=== PATIENT | male | born 1935 | race Caucasian/White ===

== ENCOUNTER → 2016-10-13 | Outpatient (CLI) | payer OTHER ==
[2016-10-13 15:45] LABS: BILIRUBIN,URINE NEGATIVE (NEG); CLARITY,URINE CLEAR (CLEAR); COLOR,URINE YELLOW; GLUCOSE, URINE (UA) NEGATIVE (NEG); NITRATE,URINE NEGATIVE (NEG); OCCULT BLOOD,URINE NEGATIVE (NEG); PH,URINE 5.5 (5.0-8.5); PROTEIN,URINE NEGATIVE (NEG); UROBILINOGEN,URINE 0.2 mg/dL (0.2)
[2016-10-13 15:47] LABS: RBC,URINE 0 /hpf; URINE SAMPLE TYPE CLEAN CATCH URINE; WBC,URINE 0
== END ==
LOC: LAB 15:21
PROVIDERS: ATTEND Orthopaedic Surgery
DX: M16.11 Unilateral primary osteoarthritis, right hip (principal)
CPT/HCPCS: 36415; 81001; 86850; 86900; 86901

== ENCOUNTER → 2016-10-13 | Outpatient (CLI) | payer OTHER ==
--- NOTE | 2016-10-14 01:00 | DI ---
XR HIP COMPLETE MIN 2VW U/L,10/13/2016 2:47 PM: Clinical History: Right hip arthritis. Previous Exam: None at this facility. Findings: AP and crosstable lateral views of the right hip are obtained, and demonstrate near complete loss of joint space with sclerosis and eburnation with osteophyte formation. A nonobstructive bowel gas pattern is noted. A few phleboliths are seen. 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
== END ==
LOC: ORTHO 15:07
PROVIDERS: ATTEND Orthopaedic Surgery
DX: M16.11 Unilateral primary osteoarthritis, right hip (principal)
CPT/HCPCS: 73502

== ENCOUNTER 2016-10-14 05:54 | Inpatient (IN) | payer OTHER ==
[~2016-10-14 05:54] MED LIST: LIDOCAINE W/ SODIUM BICARB 0.5 ML SYR ONE; Lactated Ringers 1,000 ML PRIMARY IV ONE; Sodium Chloride 0.9% 200 ML IV ONE; TRANEXAMIC ACID 1,000 MG / 10 ML VIAL ONE; ceFAZolin Inj 2gm (Premix) 50 ML IV ONE
[2016-10-14] MEDS ORDERED: Sodium Chloride 0.9% 2,000 ML ONE (06:54)
[2016-10-14] MEDS ORDERED: Gentamicin Inj 40 MG/ML VIAL ONE (06:56)
[2016-10-14] MEDS ORDERED: HEPARIN 10,000 UNIT/1 ML ONE (06:57)
[2016-10-14] MEDS ORDERED: LIDOCAINE MPF 2% - 5 ML (20 MG/1 ML) ONE (07:04)
[2016-10-14] MEDS ORDERED: fentaNYL Inj 250 MCG/5 ML VIAL ONE ×2 (07:04→08:55)
[2016-10-14] MEDS ORDERED: MIDAZOLAM 5 MG/1 ML ONE (07:04)
[2016-10-14 07:09] LABS: HEMATOCRIT 38.7 % (42.0-52.0); MEAN CORPUSCULAR HEMOGLOBIN 30.6 PG (27-31); MEAN CORPUSCULAR HGB CONC 33.6 g/dL (33-37); MEAN CORPUSCULAR VOLUME 91.1 FL (80-90); MEAN PLATELET VOLUME 8.7 FL (7.4-12.2); RED BLOOD COUNT 4.25 10^6/uL (4.70-6.10)
[2016-10-14 07:15] LABS: BLOOD UREA NITROGEN 29 mg/dL (7-22); BUN/CREATININE RATIO 16.11 (6-20); CALCIUM 9.2 mg/dL (8.7-10.7)
[2016-10-14] MEDS ORDERED: BUPivacaine Liposome/PF (Exparel) Inj 20ml vial INFIL ONE ×3 (07:27→10:20)
[2016-10-14] MEDS ORDERED: Sodium Chloride 0.9% vial 40 ML ONE (07:27)
[2016-10-14] MEDS ORDERED: Ketorolac Inj 30 MG, Morphine Inj 5 MG, BUPivacaine Inj 0.25% PF 150 MG SPLASH ONE ×3 (07:30)
[2016-10-14] MEDS ORDERED: Albumin Human Soln 25% 200 ML IV ONE (08:25)
[2016-10-14] MEDS ORDERED: Sodium Chloride 0.9% 500 ML ONE (08:36)
[2016-10-14] MEDS ORDERED: ROCURONIUM 10 MG/1 ML - 5 ML VIAL IVP ONE (08:43)
[2016-10-14] MEDS ORDERED: Lactated Ringers 1,000 ML PRIMARY IV ONE ×2 (08:48→11:10)
[2016-10-14] MEDS ORDERED: KETAMINE 100 MG/1 ML - 5 ML ONE (09:02)
[2016-10-14] MEDS ORDERED: HYDROmorphone 2 MG/1 ML IVP PRN (09:19)
[2016-10-14] MEDS ORDERED: ONDANSETRON 4 MG/2 ML VIAL IVP PRN ×2 (09:19→12:47)
[2016-10-14] MEDS ORDERED: NORMAL SALINE 10 ML SYRINGE FLUSH IVP PRN ×2 (09:19→12:47)
[2016-10-14] MEDS ORDERED: Lactated Ringers 1,000 ML PRIMARY IV SCH (09:30)
[2016-10-14] MEDS ORDERED: Sodium Chloride 0.9% 250 ML IV ONE (10:37)
[2016-10-14] MEDS ORDERED: Sodium Chloride 0.9% 100 ML IV ONE (11:10)
[2016-10-14] MEDS ORDERED: Prochlorperazine Tab 10 MG TAB PO PRN (12:47)
[2016-10-14] MEDS ORDERED: diphenhydrAMINE 25 MG CAPSULE PO PRN (12:47)
[2016-10-14] MEDS ORDERED: MAG HYDROX/AL HYDROX/SIMETH 30 ML SUSP PO PRN (12:47)
[2016-10-14] MEDS ORDERED: Ondansetron ODT Tab 8 MG TAB PO PRN (12:47)
[2016-10-14] MEDS ORDERED: MORPHINE SULFATE 2 MG/1 ML IVP PRN (12:47)
[2016-10-14] MEDS ORDERED: BISACODYL 10 MG SUPPOSITORY RECTAL PRN (12:47)
[2016-10-14] MEDS ORDERED: IBUPROFEN 400 MG TABLET PO PRN (12:47)
[2016-10-14] MEDS ORDERED: ACETAMINOPHEN 325 MG TABLET PO PRN (12:47)
[2016-10-14] MEDS ORDERED: CALCIUM CARBONATE 500 MG (TUMS) CHEWABLE TABLET PO PRN (12:47)
[2016-10-14] MEDS ORDERED: BISACODYL 5 MG TABLET PO PRN (12:47)
--- NOTE | 2016-10-14 14:03 | PDOC ---
History and Physical - History of Present Illness Date and Time of Service: 14 October 2016, 13:58 Chief Complaint: Mr. Bar is a chief complaint of right hip replacement. 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 Over the last 6 months patient has had increasing difficulty ambulating secondary to pain in his right hip. Patient was made to surgically intervene and that was done today. His past medical history includes osteoarthritis, hypertension, benign prostatic hyperplasia, hypothyroidism, appendectomy, cataract surgery, and right second toe fusion. Medications include lisinopril, finasteride, and fluoxetine. There are no known drug allergies. Past Medical History Medical History: 1. HTN. 2. CKD, stage III. 3. Hypothyroidism. 4. right hip arthritis Surgical History: had right hip replacement today Pertinent Family History: unknown Past Social History: doesn't smoke or drink. . 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 Medication / Allergies Home Medications: Home Medications Medication Instructions Recorded Confirmed Type Finasteride 1 tab PO QD tab 09/17/16 10/14/16 History Levothyroxine Sodium 1 tab PO DAILY tab 09/17/16 10/14/16 History Lisinopril/Hydrochlorothiazide 0.5 tab PO DAILY tab 09/17/16 10/14/16 History [Lisinopril-Hctz 10-12.5 mg Tab] Naproxen Sodium [Aleve] 2 cap PO BID cap 09/17/16 10/14/16 History Docusate Sodium [Colace] 100 mg PO BID #60 cap 10/17/16 Rx HYDROcodone/APAP 7.5/325 Tab 1 - 2 tab PO Q4H PRN #40 tab 10/17/16 Rx [[place] 7.5/325 Tab] Allergies/Adverse Reactions: Allergies Allergy/AdvReac Type Severity Reaction Status Date / Time No Known Allergies Allergy Verified 10/17/16 08:46 Review of Systems - Constitutional Constitutional: REPORTS: Negative System Review - Integumentary Integumentary: REPORTS: Negative System Review - Eye Exam Eye Exam: REPORTS: Negative System Review - Ear/Nose Exam Ear/Nose Exam: REPORTS: Other (Dry mucous membranes) - Mouth/Throat Mouth/Throat Exam: REPORTS: Negative System Review - Respiratory Respiratory: REPORTS: Negative System Review - Cardiovascular Cardiovascular: REPORTS: Negative System Review - Gastrointestinal Gastrointestinal / Abdominal: REPORTS: Negative System Review - Genitourinary Genitourinary: REPORTS: Hesitant Stream, Decreased Stream, Other (Benign prostatic hyperplasia) - Musculoskeletal Musculoskeletal: REPORTS: Other (Right hip surgery performed today, September,) - Hematlogic / Lymphatic Hematologic / Lymphatic: REPORTS: Negative System Review - Neurological Neurologic: REPORTS: Negative System Review - Psychiatric Psychiatric: REPORTS: Negative System Review Exam - Vitals Vital Signs: Vital Signs Temperature 97.0 F Temperature Source Oral Pulse Rate [Pulse Oximeter] 70 Pulse Rate 69 Respiratory Rate 18 Blood Pressure [Right Arm] 140/68 Blood Pressure 143/79 Pulse Ox 100 Oxygen Flow Rate 2 Oxygen Flow Rate 5 Oxygen Delivery Method Nasal Cannula Height 5 ft 11 in Weight 157 lb - General General Appearance: POSITIVE: No Acute Distress, Cooperative - Head Head Exam: POSITIVE: Normal Inspection, Normocephalic, Atraumatic - Eye Eye Exam: POSITIVE: Normal Appearance, PERRL, EOMI, No Scleral Icterus - ENT ENT Exam: POSITIVE: Normal Exam, Normal External Ear Exam, Normal Oropharynx, TM 's Normal Bilaterally, Mucous Membranes Moist - Neck Neck Exam: POSITIVE: Normal Inspection, Full ROM, No Tenderness, No Lymphadenopathy, No Thyromegaly, JVP is not Raised - Respiratory Respiratory Exam: POSITIVE: Clear to Auscultation - Bilaterally, Breathing Non Labored, Normal To Percussion, Normal to Percussion and Palpation - Cardiovascular Cardiovascular Exam: POSITIVE: RRR, No Murmur, No Clicks, No Gallops, No Rubs - GI/Abdominal GI/Abdominal Exam: POSITIVE: Normal Bowel Sounds, Non Tender, Non Distended, Soft, No Masses, No Hepatomegaly, No Splenomegaly, No Organomegaly - Rectal Rectal Exam: POSITIVE: Deferred - External Exam: POSITIVE: Normal External Inspection Exam: POSITIVE: Breen Catheter in Place - Extremities Extremities Exam: POSITIVE: Full ROM (Full range of motion in bilateral upper extremities and left lower extremity. Right lower extremity with surgical dressing in place), Normal Capillary Refill, No Clubbing Present, No Edema Present, No Cyanosis Present, Dosalis Pedis Pulses - Stong & Regular - Back Back Exam: POSITIVE: Normal Inspection, Full ROM - Neurological Neurological Exam: POSITIVE: Alert, Oriented x 3, CN II-XII Intact, No Facial Droop, Speech Intact / Clear - Psychiatric Psychiatric Exam: POSITIVE: Normal Affect, Normal Mood - Integumentary Integumentary Exam: POSITIVE: Normal Color, Warm, Dry, Intact Additional Integumentary Exam Details: Surgical dressing in place over the right hip. - Central Line Examination Central Line Present on Admission: No Results - Labs CBC and BMP: 10/17/16 07:55 10/17/16 07:55 Labs - Last 24 Hours: Laboratory Results 10/14/16 Range/Units 06:50 WBC 6.14 (4.8-10.8) 10^3/uL RBC 4.25 L (4.70-6.10) 10^6/uL Hgb 13.0 L (14.0-18.0) g/dL Hct 38.7 L (42.0-52.0) % MCV 91.1 H (80-90) FL MCH 30.6 (27-31) PG MCHC 33.6 (33-37) g/dL RDW Std Deviation 39.8 (39-50) fL RDW Coeff of Coreen 12.2 (11.5-14.5) % Plt Count 270 (140-350) 10*3/uL MPV 8.7 (7.4-12.2) FL Sodium 136 (135-145) meq/L Potassium 4.7 (3.8-5.2) meq/L Chloride 106 (98-112) meq/L Carbon Dioxide 22 L (23-33) meq/L Anion Gap 8 (5-20) BUN 29 H (7-22) mg/dL Creatinine 1.8 H (0.70-1.50) mg/dL Estimated GFR Strainer Mill Operator BUN/Creatinine Ratio 16.11 (6-20) Glucose 94 (78-110) mg/dL Calculated Osmolality 287.0 (267-292) mOsm/kg Calcium 9.2 (8.7-10.7) mg/dL Total Bilirubin 0.7 (0.3-1.2) mg/dL AST 32 (21-57) IU/L ALT 23 (21-72) IU/L Alkaline Phosphatase 78 (38-126) IU/L Total Protein 6.9 (6.1-8.0) g/dL Albumin 4.0 (3.5-4.8) g/dL Globulin 3.0 (2.50-4.10) g/dL Albumin/Globulin Ratio 1.30 (1.3-2.0) mg/g - Imaging Status: Report Reviewed by Me (patient is s/p hip replacement with good alignment per radiologist.) AFib Stroke Risk Screening - AFib Stroke Risk (CHADS-VASc) Atrial Fibrillation Ischemic Stroke Risk Factors: Hypertension, Age 75 years or older CHADS-VASc Score (A-Fib Stroke Risk Score): 3 CHADS-VASc Risk: High Risk Assessment and Plan - Patient Problems (1) CKD (chronic kidney disease) stage 3, GFR 30-59 ml/min Status: Acute (2) HTN (hypertension) Status: Acute Qualifiers: Hypertension type: essential hypertension Qualified Description: Essential hypertension Qualifier Code(s): (I10) Essential (primary) hypertension (3) BPH (benign prostatic hyperplasia) Status: Acute Qualifiers: Prostatic enlargement morphology: unspecified morphology Lower urinary tract symptom presence: presence of symptoms unspecified Qualified Description: Benign prostatic hyperplasia, presence of lower urinary tract symptoms unspecified, unspecified morphology Qualifier Code(s): (N40.0) Benign prostatic hyperplasia without lower urinary tract symptoms (4) Depression Status: Acute Qualifiers: Depression Type: unspecified Qualified Description: Depression, unspecified depression type Qualifier Code(s): (F32.9) Major depressive disorder, single episode, unspecified (5) Status post right hip replacement Status: Acute - Assessment / Plan Additional Assessment/Plan Details: Plan is for management of his hypertension, benign prostatic hyperplasia, and hypothyroidism as well as fluid management. continue home medications DVT prophylaxis as per ortho check labs in AM PT and OT Quality Measures - Stroke - InPatient Medications Reason for Not Ordering Anticoagualant for A-Fib / A-Flutter: Not Indicated Medical Reason for Not Ordering Thrombolytic Therapy (t-PA): Medical Contraindication
[2016-10-14] MEDS: Lactated Ringers 1,000 ML PRIMARY IV SCH (14:07)
--- NOTE | 2016-10-14 15:41 | ORTHO.PROG ---
Last Taken Vital Signs: Vital Signs - Last Taken Temperature 97.2 F 10/14/16 14:30 Pulse Rate 74 10/14/16 14:30 Respiratory Rate 16 10/14/16 14:30 Blood Pressure 152/75 10/14/16 14:30 Pulse Ox 99 10/14/16 14:30 Subjective: Patient states he has no pain in the right hip Objective: Patient with good movement of the foot and ankle about 40 flexion at the hip and 60 of the knee full extension. Sensory exam is intact in the lower extremity. Dressing is in place with no active drainage. Drain is in place with about 60 mL of serous he bloody fluid. Intake and Output - 8hrs 10/13/16 10/14/16 10/14/16 10/14/16 21:59 05:59 13:59 21:59 Intake: IV 2350 800 OrthoPat 75 Output: Output, Drainage Amount 60 Output, Urine Amount 35 Output, Emesis 360 Output, Estimated Blood 200 Loss Amount Other: Percent Meal Consumed just admitted to floor at this time, Weight 71.214 kg Weight Measurement Method Standing Scale Laboratory Results 10/14/16 Range/Units 06:50 WBC 6.14 (4.8-10.8) 10^3/uL RBC 4.25 L (4.70-6.10) 10^6/uL Hgb 13.0 L (14.0-18.0) g/dL Hct 38.7 L (42.0-52.0) % MCV 91.1 H (80-90) FL MCH 30.6 (27-31) PG MCHC 33.6 (33-37) g/dL RDW Std Deviation 39.8 (39-50) fL RDW Coeff of Coreen 12.2 (11.5-14.5) % Plt Count 270 (140-350) 10*3/uL MPV 8.7 (7.4-12.2) FL Sodium 136 (135-145) meq/L Potassium 4.7 (3.8-5.2) meq/L Chloride 106 (98-112) meq/L Carbon Dioxide 22 L (23-33) meq/L Anion Gap 8 (5-20) BUN 29 H (7-22) mg/dL Creatinine 1.8 H (0.70-1.50) mg/dL Estimated GFR Soil Sampler BUN/Creatinine Ratio 16.11 (6-20) Glucose 94 (78-110) mg/dL Calculated Osmolality 287.0 (267-292) mOsm/kg Calcium 9.2 (8.7-10.7) mg/dL Total Bilirubin 0.7 (0.3-1.2) mg/dL AST 32 (21-57) IU/L ALT 23 (21-72) IU/L Alkaline Phosphatase 78 (38-126) IU/L Total Protein 6.9 (6.1-8.0) g/dL Albumin 4.0 (3.5-4.8) g/dL Globulin 3.0 (2.50-4.10) g/dL Albumin/Globulin Ratio 1.30 (1.3-2.0) mg/g Assessment: Right anterior total hip replacement Plan: Mobilize with physical therapy Pain control DVT prophylaxis with aspirin and pneumatic sequential devices
[2016-10-14] MEDS: ceFAZolin Inj 2gm (Premix) 2 GM in Dextrose 1 BAG IV SCH (15:50)
--- NOTE | 2016-10-14 16:32 | DI ---
XR HIP COMPLETE MIN 2VW U/L,10/14/2016 10:37 AM: Clinical History: Right hip replacement. Previous Exam: 10/13/16 Findings: AP and crosstable lateral views of the right hip are obtained, and demonstrate a right total hip arth roplasty. ANGY drains are noted. A nonobstructive bowel gas pattern is seen. Impression: Status post right total hip arthroplasty without fracture.
[2016-10-14] MEDS ORDERED: MORPHINE SULFATE 10 MG/1 ML IV PRN (17:09)
[2016-10-14] MEDS ORDERED: MORPHINE SULFATE 2 MG/1 ML IV PRN (17:09)
[2016-10-14] MEDS ORDERED: MORPHINE SULFATE 4 MG/1 ML IV PRN (17:09)
[2016-10-14] MEDS: DOCUSATE 100 MG CAPSULE PO SCH (21:57)
[2016-10-15] MEDS: ceFAZolin Inj 2gm (Premix) 2 GM in Dextrose 1 BAG IV SCH (00:10)
[2016-10-15] MEDS: Lactated Ringers 1,000 ML PRIMARY IV SCH (00:10)
[2016-10-15] MEDS: HYDROcodone-APAP 7.5 MG-325 MG TABLET PO PRN ×5 (04:09→21:46)
[2016-10-15] MEDS: LEVOTHYROXINE 25 MCG TABLET PO SCH (04:32)
[2016-10-15 07:08] LABS: HEMOGLOBIN 9.5 g/dL (14.0-18.0); MEAN CORPUSCULAR HEMOGLOBIN 30.9 PG (27-31); MEAN CORPUSCULAR HGB CONC 32.8 g/dL (33-37); MEAN CORPUSCULAR VOLUME 94.5 FL (80-90); RED BLOOD COUNT 3.07 10^6/uL (4.70-6.10)
[2016-10-15 07:09] LABS: MEAN PLATELET VOLUME 9.1 FL (7.4-12.2)
[2016-10-15 07:11] LABS: BLOOD UREA NITROGEN 26 mg/dL (7-22); BUN/CREATININE RATIO 14.44 (6-20); CALCIUM 8.6 mg/dL (8.7-10.7)
--- NOTE | 2016-10-15 07:54 | ORTHO.PROG ---
Last Taken Vital Signs: Vital Signs - Last Taken Temperature 98.4 F 10/15/16 07:18 Pulse Rate 76 10/15/16 07:18 Respiratory Rate 18 10/15/16 07:18 Blood Pressure 112/60 10/15/16 07:18 Pulse Ox 92 10/15/16 07:18 Subjective: Patient has he had no pain until this morning when he started with soreness relieved well with oral pain medication. Patient walked to door with therapy yesterday Objective: Examination shows that the patient has a supple leg is not swollen he has his dressing in place the drain has approximately 10 mL and that this morning and this was from an hour 40 minutes ago. Drainage recorded from 6 last night 6 this morning was 350 but with discussing with staff and patient volume seems much less than that. Patient notes almost filled 1 urine Cup. Motor and sensory exam is nonfocal good pulses and brisk refill Intake and Output - 8hrs 10/14/16 10/14/16 10/15/16 10/15/16 13:59 21:59 05:59 13:59 Intake: IV 2350 800 1280 Intake Oral Amount 150 OrthoPat 75 Output: Output, Drainage Amount 60 120 350 Right Anterior Hip 120 350 Output, Urinary Catheter 100 600 Amount Output, Urine Amount 35 Output, Emesis 460 Output, Estimated Blood 200 Loss Amount Other: Percent Meal Consumed just admitted to floor at this time, 100% Weight 71.214 kg Weight Measurement Method Standing Scale Laboratory Results 10/15/16 Range/Units 06:39 WBC 8.65 (4.8-10.8) 10^3/uL RBC 3.07 L (4.70-6.10) 10^6/uL Hgb 9.5 L (14.0-18.0) g/dL Hct 29.0 L (42.0-52.0) % MCV 94.5 H (80-90) FL MCH 30.9 (27-31) PG MCHC 32.8 L (33-37) g/dL RDW Std Deviation 41.1 (39-50) fL RDW Coeff of Coreen 12.4 (11.5-14.5) % Plt Count 203 (140-350) 10*3/uL MPV 9.1 (7.4-12.2) FL Sodium 135 (135-145) meq/L Potassium 4.6 (3.8-5.2) meq/L Chloride 105 (98-112) meq/L Carbon Dioxide 25 (23-33) meq/L Anion Gap 5 (5-20) BUN 26 H (7-22) mg/dL Creatinine 1.8 H (0.70-1.50) mg/dL Estimated GFR Business Taxes Specialist BUN/Creatinine Ratio 14.44 (6-20) Glucose 103 (78-110) mg/dL Calculated Osmolality 284.0 (267-292) mOsm/kg Calcium 8.6 L (8.7-10.7) mg/dL Vital Signs (24 hrs) Temp Pulse Pulse Resp BP BP Pulse Ox 10/15/16 07:18 98.4 F 76 18 112/60 92 10/15/16 07:00 18 10/15/16 04:20 98.0 F 10/15/16 04:00 99.0 F 73 18 113/57 96 10/15/16 00:10 98.6 F 67 18 109/69 96 10/14/16 20:28 98.1 F 69 18 133/68 100 10/14/16 19:00 69 18 10/14/16 16:02 97.3 F 75 18 150/74 97 10/14/16 14:30 97.2 F 74 16 152/75 99 10/14/16 13:30 97 F 81 18 150/96 99 10/14/16 13:15 97 F 85 18 145/80 98 10/14/16 13:00 97 F 85 18 145/80 98 10/14/16 12:49 97.0 F 70 18 140/68 100 10/14/16 12:45 97.0 F 66 18 140/68 100 10/14/16 12:32 69 14 143/79 10/14/16 12:22 97.8 F 66 14 141/80 10/14/16 12:12 60 14 141/74 10/14/16 12:02 70 14 148/70 10/14/16 11:52 98.2 F 62 14 144/79 10/14/16 11:42 66 10 L 141/76 10/14/16 11:32 96.8 F 65 9 L 131/72 10/14/16 11:27 65 8 L 135/68 10/14/16 11:22 63 8 L 129/71 10/14/16 11:17 64 9 L 131/69 10/14/16 11:12 64 9 L 128/68 10/14/16 11:07 96.7 F L 64 9 L 131/72 10/14/16 11:02 66 8 L 122/65 10/14/16 10:57 67 8 L 120/64 10/14/16 10:52 96.8 F 70 8 L 125/64 Assessment: Right anterior total hip replacement Plan: Pain control and mobilize with physical therapy. DVT prophylaxis with pneumatics and aspirin
[2016-10-15] MEDS: LISINOPRIL 5 MG TABLET PO SCH (08:11)
[2016-10-15] MEDS: FINASTERIDE 5 MG TABLET PO SCH (08:11)
[2016-10-15] MEDS: ASPIRIN 325 MG EC TABLET PO SCH ×2 (08:13→21:46)
[2016-10-15] MEDS: HYDROCHLOROTHIAZIDE 25 MG TABLET PO SCH (08:13)
[2016-10-15] MEDS: DOCUSATE 100 MG CAPSULE PO SCH ×2 (08:13→21:46)
[2016-10-15] MEDS ORDERED: [UNRECOGNIZED DRUG - OTHER] PO SCH (09:00)
[2016-10-15] MEDS ORDERED: LISINOPRIL PO SCH (09:00)
[2016-10-15] MEDS ORDERED: HYDROCHLOROTHIAZIDE PO SCH (09:00)
--- NOTE | 2016-10-15 09:17 | CRNA.PROGR ---
Anesthesia Note Anesthesia Progress Note: Post Anesthesia note Pt is sitting up in bed, awake alert and oriented. He is not experiencing any pain in his hip but does say his lower lumbar is aching. He has been up several times and is tolerating a regular diet. He denies any residual issues from the general anesthetic. Current VS stable. Vital Signs - Last Taken Temperature 98.4 F 10/15/16 07:18 Pulse Rate 76 10/15/16 07:18 Respiratory Rate 18 10/15/16 07:18 Blood Pressure 112/60 10/15/16 07:18 Pulse Ox 92 10/15/16 07:18
--- NOTE | 2016-10-15 11:16 | PT.PROG ---
Progress Note Progress Note: S. Patient stated that he is feeling good this morning. He reports he has a little pain with movement. O. Patient ambulated 175 feet to the therapy gym where he had heat then performed exercises in the form of; heel slides, quad sets, ankle pumps, short arc quads and sit to stands all x 10. Patient ambulated 175 feet back to his room where he was left in his chair with alarm and call light. A. Patient tolerated therapy very well this morning, he was able to ambulate the full distance to the therapy gym with no issue, He requires CGA during ambulation to assist with balance. Patient would continue to benefit from skilled therapy to increase balance before discharge. P. continue POC.
--- NOTE | 2016-10-15 11:53 | PTI REPORT ---
Thank you for the referral of Cameron Bar. He was seen on 10/14/16 for an inpatient evaluation status post right total hip arthroplasty. SUBJECTIVE: The patient is an 81-year-old male. The patient reports he underwent his right total hip procedure this morning but is requesting to get up this afternoon. He states at this time he has no pain; his only complaints are nausea and dizziness. PAST MEDICAL HISTORY: Past medical history can be found in the patient's medical record. OBJECTIVE FINDINGS: Pain: The patient reports a pain level currently of 0/10 on the verbal analog scale (0=no pain, 10=worst pain) which raised to a 1-2/10 with ambulatory activities later on in the evaluation and treatment. Bed mobility: The patient was able to perform bed mobility from supine to edge of bed with stand by assistance only. Transfers: The patient was able to perform three sit to stand transfers with tactile and verbal cues for proper hand placement. Ambulation: The patient was able to ambulate within his room x10 feet with standard walker, gait belt, and contact guard assistance with four liters of oxygen via nasal cannula with verbal prompting for proper walker management as well as proper nose breathing with his oxygen. Strength/Range of motion: Strength and range of motion were not formally tested due to the patient having surgery earlier this morning, but he did demonstrate the ability to perform an independent straight leg raise with extensor lag as well as all bed mobility without physical assistance. ASSESSMENT: Problem List: Pain in the right hip Decreased passive and active range of motion in the right hip Decreased strength in the right hip Short-Term Goals: To be met by discharge from inpatient: Patient will be able to transfer from bed to stand independently. Patient will be able to ambulate 100 feet with walker, weight-bearing as tolerated. Patient will be able to ascend and descend five stairs with walker, weight- bearing as tolerated. Long-Term Goals: To be met following discharge from inpatient: Patient will be seen by outpatient physical therapy. TREATMENT PLAN: Patient will be seen B.I.D during the week and one time per day over the weekend as an inpatient to address the above goals and objectives. INITIAL TREATMENT: Treatment today consisted of the initial evaluation followed by the patient being issued a standard walker. The patient was able to perform bed mobility and transfers with stand by assistance as well as three sit to stand transfers from edge of bed. The patient ambulated 10 feet within his room weight-bearing as tolerated with gait belt and contact guard assistance. The patient performed standing weight-bearing activities x5 minutes. SCAR
--- NOTE | 2016-10-15 14:36 | PT.PROG ---
Progress Note Progress Note: S: Cameron is doing well this afternoon. O: Pt received MHP x 20 min prior to instruction in ther ex - 10 x each of the following: quad sets, heel slides, glut sets, SAQ's, ankle pumps, sit to stands , pillow squeezes, step ups onto a 4 inch box, seated resisted hamstring curls with yellow tband. After ther ex, pt ambulated with walker and CGA x 1 from therapy to room x 150 feet. Pt was left in room with alarm set and call light within reach. A: Cameron tolerated exercises well. Cameron is doing well and was able to perform box activity with MANAGING PRINCIPAL x 2 on walker. P: Continue per POC.
--- NOTE | 2016-10-15 14:51 | PDOC(PROG) ---
Date and Time of Service: 15 October 2016, 14:40 Interval History: Subjective: Patient states he feels much better with improvement of bilateral leg pain especially his right hip. He is joking and smiling and engaging with his brother and . Objective: CBC shows to be unremarkable. Comprehensive metabolic panel shows creatinine remains at 1.8. Patient was able to complete his physical therapy. Assessment: #1 chronic renal failure stable. #2 postoperative recovery from right hip surgery improving. Plan: Patient is medically stable and from hospitalist standpoint ready for discharge home. Disposition per Dr. Gandara. We will continue to follow this patient during his hospital stay. Objective : Data - Labs CBC and BMP: 10/15/16 06:39 10/15/16 06:39 Labs - Last 24 Hours: Laboratory Results 10/15/16 Range/Units 06:39 WBC 8.65 (4.8-10.8) 10^3/uL RBC 3.07 L (4.70-6.10) 10^6/uL Hgb 9.5 L (14.0-18.0) g/dL Hct 29.0 L (42.0-52.0) % MCV 94.5 H (80-90) FL MCH 30.9 (27-31) PG MCHC 32.8 L (33-37) g/dL RDW Std Deviation 41.1 (39-50) fL RDW Coeff of Coreen 12.4 (11.5-14.5) % Plt Count 203 (140-350) 10*3/uL MPV 9.1 (7.4-12.2) FL PT 11.3 (9.7-11.4) secs INR 1.07 (0.00-5.90) N/A Sodium 135 (135-145) meq/L Potassium 4.6 (3.8-5.2) meq/L Chloride 105 (98-112) meq/L Carbon Dioxide 25 (23-33) meq/L Anion Gap 5 (5-20) BUN 26 H (7-22) mg/dL Creatinine 1.8 H (0.70-1.50) mg/dL Estimated GFR Electrochemist BUN/Creatinine Ratio 14.44 (6-20) Glucose 103 (78-110) mg/dL Calculated Osmolality 284.0 (267-292) mOsm/kg Calcium 8.6 L (8.7-10.7) mg/dL
[2016-10-16] MEDS: LEVOTHYROXINE 25 MCG TABLET PO SCH (04:42)
[2016-10-16 06:24] LABS: HEMATOCRIT 30.8 % (42.0-52.0); HEMOGLOBIN 10.4 g/dL (14.0-18.0); MEAN CORPUSCULAR HEMOGLOBIN 31.6 PG (27-31); MEAN CORPUSCULAR VOLUME 93.6 FL (80-90); RED BLOOD COUNT 3.29 10^6/uL (4.70-6.10)
[2016-10-16 06:25] LABS: MEAN CORPUSCULAR HGB CONC 33.8 g/dL (33-37); MEAN PLATELET VOLUME 9.1 FL (7.4-12.2)
[2016-10-16 06:31] LABS: BLOOD UREA NITROGEN 30 mg/dL (7-22); BUN/CREATININE RATIO 16.66 (6-20); CALCIUM 8.9 mg/dL (8.7-10.7)
[2016-10-16] MEDS: HYDROcodone-APAP 7.5 MG-325 MG TABLET PO PRN ×3 (08:08→23:17)
[2016-10-16] MEDS: FINASTERIDE 5 MG TABLET PO SCH (08:08)
[2016-10-16] MEDS: DOCUSATE 100 MG CAPSULE PO SCH ×2 (08:08→20:38)
[2016-10-16] MEDS: ASPIRIN 325 MG EC TABLET PO SCH ×2 (08:08→20:38)
[2016-10-16] MEDS: HYDROCHLOROTHIAZIDE 25 MG TABLET PO SCH (08:15)
[2016-10-16] MEDS: LISINOPRIL 5 MG TABLET PO SCH (08:15)
--- NOTE | 2016-10-16 11:05 | PT.PROG ---
Progress Note Progress Note: S. Patient stated that he is feeling much better this morning compared to last night. O. Patient ambulated 175 feet to the therapy gym where he had heat then performed exercises in the form of; quad sets, glut sets, 4-way ankle(red), short arc quads, heel slides, sit to stands all x 10, #3 box step ups x 10. Patient's walker was fitted with wheels and he ambulated 175 feet back to his room where he was left in chair with alarm and call light. A. Patient tolerated exercises well this morning, he is making gains with mobility and strength, he requires verbal cues to slow down during ambulation and exercises to perform properly. Patient tolerated ambulation with front wheeled walker well, he would continue to benefit from skilled therapy for safety before returning home. P. continue POC. Plan to perform stair training 10/16 PM.
--- NOTE | 2016-10-16 11:34 | OT.PROG ---
Progress Note Progress Note: S: pt stated that he had some pain last night around 10, but after meds it seemed to go away. O: pt was seen in the a.m. for ADL dressing. He completed doffing/donning of socks with sock aid and candy packer Ind. He then transferred downstairs with walker taking no breaks. A: pt completed ALD's successfully with very little cues. Progressing well. P: Continue Per POC.
--- NOTE | 2016-10-16 11:55 | ORTHO.PROG ---
Last Taken Vital Signs: Vital Signs - Last Taken Temperature 99 F 10/16/16 07:48 Pulse Rate 89 10/16/16 07:48 Respiratory Rate 20 10/16/16 07:48 Blood Pressure 104/65 10/16/16 07:48 Pulse Ox 92 10/16/16 07:48 Subjective: Patient doing well states he slept well last night Objective: No significant swelling motor and sensory exam is nonfocal. Dressing is in place with suction device working. Intake and Output - 8hrs 10/15/16 10/15/16 10/16/16 10/16/16 13:59 21:59 05:59 13:59 Intake: Intake Oral Amount 480 950 50 590 Output: Output, Urinary Catheter 200 Amount Output, Urine Amount 325 950 Other: Percent Meal Consumed 100% 100% 100% Number of Voids 1 1 1 Weight 74.661 kg 74.48 kg Weight Measurement Method Standing Scale Standing Scale Laboratory Results 10/16/16 Range/Units 06:01 WBC 12.47 H (4.8-10.8) 10^3/uL RBC 3.29 L (4.70-6.10) 10^6/uL Hgb 10.4 L (14.0-18.0) g/dL Hct 30.8 L (42.0-52.0) % MCV 93.6 H (80-90) FL MCH 31.6 H (27-31) PG MCHC 33.8 (33-37) g/dL RDW Std Deviation 40.7 (39-50) fL RDW Coeff of Coreen 12.4 (11.5-14.5) % Plt Count 209 (140-350) 10*3/uL MPV 9.1 (7.4-12.2) FL PT 11.8 H (9.7-11.4) secs INR 1.11 (0.00-5.90) N/A Sodium 135 (135-145) meq/L Potassium 4.8 (3.8-5.2) meq/L Chloride 104 (98-112) meq/L Carbon Dioxide 22 L (23-33) meq/L Anion Gap 9 (5-20) BUN 30 H (7-22) mg/dL Creatinine 1.8 H (0.70-1.50) mg/dL Estimated GFR Animal Services Officer BUN/Creatinine Ratio 16.66 (6-20) Glucose 93 (78-110) mg/dL Calculated Osmolality 285.0 (267-292) mOsm/kg Calcium 8.9 (8.7-10.7) mg/dL Vital Signs (24 hrs) Temp Pulse Resp BP Pulse Ox 10/16/16 07:48 99 F 89 20 104/65 92 10/16/16 07:00 98.6 F 80 16 124/74 93 10/16/16 04:48 98.8 F 81 24 101/78 96 10/16/16 04:46 94 10/16/16 00:19 98.8 F 83 22 128/71 92 10/15/16 20:06 97.4 F 90 20 133/70 92 10/15/16 17:00 98.2 F 81 18 134/66 91 10/15/16 13:03 98.6 F 89 18 103/65 93 Assessment: Right anterior total hip replacement doing well Plan: Continue with current plan therapy, DVT prophylaxis, and pain control. If patient continues to make excellent progress as he has we may be able to consider discharge home tomorrow
--- NOTE | 2016-10-16 17:14 | PT.PROG ---
Progress Note Progress Note: S: Cameron reports that he is doing well this afternoon. Feels that he is ready to go home tomorrow. o: Treatment consisted of: ambulating x 150 feet with FWW and CGA x 1 for safety. MHP x 20 min to R hip prior to exercises. Instruction in ther ex: 10x each of the following - SAQ, 4 way ankle with red tband, heel slides, quad sets , minute drills, pillow squeezes, sit to stands. Gait training for stairs with walker - able to complete 1 flight correctly with min VC and SBA x 1 for safety. Pt ambulated x 150 feet back to room with SBA x 1. A: Pt is doing very well and able to perform stairs with safely with minimal cuing. Pt has met goals for therapy. P: Plan to see patient 1x tomorrow prior to anticipated d/c tomorrow.
--- NOTE | 2016-10-16 22:04 | PDOC(PROG) ---
Date and Time of Service: 10/16/2016, 1430 Interval History: no complaints of chest pain, SOB, nausea or vomiting. Objective : Data - Labs CBC and BMP: 10/16/16 06:01 10/16/16 06:01 Labs - Last 24 Hours: Laboratory Results 10/16/16 Range/Units 06:01 WBC 12.47 H (4.8-10.8) 10^3/uL RBC 3.29 L (4.70-6.10) 10^6/uL Hgb 10.4 L (14.0-18.0) g/dL Hct 30.8 L (42.0-52.0) % MCV 93.6 H (80-90) FL MCH 31.6 H (27-31) PG MCHC 33.8 (33-37) g/dL RDW Std Deviation 40.7 (39-50) fL RDW Coeff of Coreen 12.4 (11.5-14.5) % Plt Count 209 (140-350) 10*3/uL MPV 9.1 (7.4-12.2) FL PT 11.8 H (9.7-11.4) secs INR 1.11 (0.00-5.90) N/A Sodium 135 (135-145) meq/L Potassium 4.8 (3.8-5.2) meq/L Chloride 104 (98-112) meq/L Carbon Dioxide 22 L (23-33) meq/L Anion Gap 9 (5-20) BUN 30 H (7-22) mg/dL Creatinine 1.8 H (0.70-1.50) mg/dL Estimated GFR [employer] BUN/Creatinine Ratio 16.66 (6-20) Glucose 93 (78-110) mg/dL Calculated Osmolality 285.0 (267-292) mOsm/kg Calcium 8.9 (8.7-10.7) mg/dL Objective : Exam - General General Appearance: No Acute Distress, Cooperative Additional General Exam Details: Vital Signs - Last Taken Temperature 99.4 F 10/16/16 19:15 Pulse Rate 83 10/16/16 19:15 Respiratory Rate 16 10/16/16 19:15 Blood Pressure 116/64 10/16/16 19:15 Pulse Ox 94 10/16/16 19:15 - Respiratory Respiratory Exam: Clear to Auscultation - Bilaterally, Breathing Non Labored - Cardiovascular Cardiovascular Exam: RRR, No Murmur, No Clicks, No Gallops, No Rubs, No JVD - GI/Abdominal GI/Abdominal Exam: Normal Bowel Sounds, Non Tender, Non Distended, Soft - Extremities Extremities Exam: No Clubbing Present, No Edema Present, No Cyanosis Present Additional Extremities Exam Details: right hip with dressing intact, no surrounding erythema - Neurological Neurological Exam: Alert, Oriented x 3, No Facial Droop, Speech Intact / Clear, Moves All Extremities Equally Assessment and Plan - Patient Problems (1) HTN (hypertension) Current Visit: Yes Status: Acute (2) BPH (benign prostatic hyperplasia) Current Visit: Yes Status: Acute Qualifiers: Prostatic enlargement morphology: unspecified morphology Lower urinary tract symptom presence: presence of symptoms unspecified Qualified Description: Benign prostatic hyperplasia, presence of lower urinary tract symptoms unspecified, unspecified morphology Qualifier Code(s): (N40.0) Benign prostatic hyperplasia without lower urinary tract symptoms (3) Depression Current Visit: Yes Status: Acute Qualifiers: Depression Type: unspecified Qualified Description: Depression, unspecified depression type Qualifier Code(s): (F32.9) Major depressive disorder, single episode, unspecified (4) Hip arthritis Current Visit: Yes Status: Acute - Assessment / Plan Additional Assessment/Plan Details: no change from hospitalist side except to add medications for constipation. continue anti-HTN medications. continue thyroid replacement.
[2016-10-16] MEDS ORDERED: Fleet Enema w/Mineral Oil 133ml RECTAL ONE (22:06)
[2016-10-16] MEDS ORDERED: MAGNESIUM 400 MG/5 ML - 30 ML (MILK OF MAGNESIA) PO ONE (22:06)
[2016-10-17] MEDS ORDERED: Fleet Enema w/Mineral Oil 133ml RECTAL ONE ×2 (05:23→05:30)
[2016-10-17] MEDS: LEVOTHYROXINE 25 MCG TABLET PO SCH (05:28)
[2016-10-17 08:00] LABS: HEMATOCRIT 31.2 % (42.0-52.0); HEMOGLOBIN 10.3 g/dL (14.0-18.0); RED BLOOD COUNT 3.32 10^6/uL (4.70-6.10)
[2016-10-17 08:01] LABS: MEAN PLATELET VOLUME 8.3 FL (7.4-12.2)
[2016-10-17 08:11] LABS: BLOOD UREA NITROGEN 34 mg/dL (7-22); BUN/CREATININE RATIO 18.88 (6-20); CALCIUM 8.9 mg/dL (8.7-10.7)
[2016-10-17 08:26] VITALS: RESP 20
[2016-10-17] MEDS: DOCUSATE 100 MG CAPSULE PO SCH (08:38)
[2016-10-17] MEDS: FINASTERIDE 5 MG TABLET PO SCH (08:38)
[2016-10-17] MEDS: ASPIRIN 325 MG EC TABLET PO SCH (08:38)
[2016-10-17] MEDS: HYDROcodone-APAP 7.5 MG-325 MG TABLET PO PRN (08:38)
[2016-10-17] MEDS: HYDROCHLOROTHIAZIDE 25 MG TABLET PO SCH (08:39)
[2016-10-17] MEDS: LISINOPRIL 5 MG TABLET PO SCH (08:39)
--- NOTE | 2016-10-17 09:18 | ORTHO.PROG ---
Last Taken Vital Signs: Vital Signs - Last Taken Temperature 98.2 F 10/17/16 08:25 Pulse Rate 77 10/17/16 08:25 Respiratory Rate 20 10/17/16 08:25 Blood Pressure 117/58 10/17/16 08:25 Pulse Ox 97 10/17/16 08:25 Subjective: Doing well no complaints Objective: PREVENA dressing is in place, leg is supple no significant swelling. No drainage of significance into dressing. Motor and sensory exam is nonfocal. No calf, popliteal, adductor hiatus or thigh pain. Laboratory Results 10/17/16 10/17/16 Range/Units 05:00 07:55 WBC 10.39 (4.8-10.8) 10^3/uL RBC 3.32 L (4.70-6.10) 10^6/uL Hgb 10.3 L (14.0-18.0) g/dL Hct 31.2 L (42.0-52.0) % MCV 94.0 H (80-90) FL MCH 31.0 (27-31) PG MCHC 33.0 (33-37) g/dL RDW Std Deviation 41.2 (39-50) fL RDW Coeff of Coreen 12.6 (11.5-14.5) % Plt Count 227 (140-350) 10*3/uL MPV 8.3 (7.4-12.2) FL PT 10.7 (9.7-11.4) secs INR 1.01 (0.00-5.90) N/A Sodium 135 (135-145) meq/L Potassium 4.1 (3.8-5.2) meq/L Chloride 103 (98-112) meq/L Carbon Dioxide 25 (23-33) meq/L Anion Gap 7 (5-20) BUN 34 H (7-22) mg/dL Creatinine 1.8 H (0.70-1.50) mg/dL Estimated GFR [employer] BUN/Creatinine Ratio 18.88 (6-20) Glucose 179 H (78-110) mg/dL Calculated Osmolality 291.0 (267-292) mOsm/kg Calcium 8.9 (8.7-10.7) mg/dL Vital Signs (24 hrs) Temp Pulse Resp BP Pulse Ox 10/17/16 08:25 98.2 F 77 20 117/58 97 10/17/16 05:21 94 10/17/16 05:00 98.2 F 71 14 116/72 94 10/17/16 00:41 98.5 F 80 18 96/60 92 10/16/16 19:15 99.4 F 83 16 116/64 94 10/16/16 18:00 99.1 F 89 128/64 96 10/16/16 16:21 97.9 F 95 22 147/74 93 10/16/16 12:53 97.3 F 66 18 91/55 95 Assessment: Right anterior total hip replacement doing well Plan: Patient will work with physical therapy this morning and aggress to home later in the morning. Patient will continue current care and treatment and begin physical therapy at the beginning of next week.
--- NOTE | 2016-10-17 11:26 | PT.PROG ---
Progress Note Progress Note: S. Patient stated that he is feeling good this morning and is ready to go home. O. patient ambulated 175 feet to the therapy gym where he had heat and performed exercises in the form of; heel slides, quad sets, glut sets, 4-way ankle (red), short arc quads, sit to stands all x 10. Patient ambulated 175 feet back to his room where he was left with OT for further therapy. A. Patient tolerated exercises well, he ambulated with SBG assist and has met all goals at this time. P. continue POC. until Discharge.
--- NOTE | 2016-10-17 12:15 | OTI REPORT ---
Thank you for the referral of Cameron Bar. He was seen on 10/15/16 for an occupational therapy inpatient evaluation status post right total hip arthroplasty. SUBJECTIVE: The patient is an 81-year-old male who is being seen secondary to having a right anterior hip revision. [place] Prior to admission he was independent with all ADLs and functional activities. He completed outdoor activities in his shop. PAST MEDICAL HISTORY: Past medical history can be found in the patient's medical record. OBJECTIVE FINDINGS: Activities of daily living: The patient was not able to doff and don socks; he is only able to reach to approximately mid calf. He was able to put on his shorts independently. The patient was able to doff socks using a security developer with min assist and donned socks using a sock aide with mod assist. He decided that he would like both items but would definitely require more assistance and verbal cues. The patient was also issued a long handled shoe horn as he does have slip on shoes that are sometimes hard to get on secondary to the swelling in his foot. Transfers: The patient was able to come from sit to stand with stand by assistance. Ambulation: The patient was also educated in walker safety for home and how to use the walker with reaching tasks and hanging onto a stable surface. ASSESSMENT: The patient would benefit from at least one more session of occupational therapy to address use of adaptive equipment including using a security developer and sock aide. Overall he is doing well with functional transfers. The patient's will be present when he goes home. Short-Term Goals: To be met by discharge from inpatient: Patient will be able to use security developer and sock aide independently. Patient will be able to complete functional transfers independently. Patient will be able to verbalize and demonstrate home safety techniques and reaching tasks independently. Long-Term Goals: To be met following discharge from inpatient: Patient will be discharged home, demonstrating safety and independence with all activities of daily living and functional transfers. TREATMENT PLAN: Patient will be seen B.I.D during the week and one time per day over the weekend as an inpatient to address the above goals and objectives. INITIAL TREATMENT: Treatment today consisted of the initial evaluation followed by demonstration and instruction of adaptive equipment and functional transfers. The patient was educated and instructed in his hip precautions including no straight leg raises and no major hip extension. SCAR
--- NOTE | 2016-10-17 12:46 | DCSUMMARY ---
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 Gandara. Please see his note. It should have details of the surgical procedure. The patient is done very well and is taking a minimal amount of pain medications , has done very well with physical therapy and occupational therapy. He has been cleared by them to go home. He has been cleared by orthopedics to go home. The hospital service was involved watch over hypertension and hypothyroidism. We continued his home medications and he had no problems. His only medical issue really during the hospital stay was constipation which improved with an enema by the morning of discharge. We will keep him on Colace through the duration of his opiate pain medications for pain control post surgery. Patient's anemia remained fairly stable. Hemoglobin and hematocrit were consistently in the tens and 30s range. He is not symptomatic from this. Today, patient states he had a small bowel movement this morning, does not have any chest pain, shortness breath, nausea or vomiting and his hip pain is well controlled. He is "ready to go home". Assessment and Plan: 1. As per discharge assessments noted 2. Disposition: Patient is discharged home. 3. Condition on discharge, stable and improved. 4. Diet: regular diet 5. Activities: resume activities as per physical therapy and Dr. Gandara instructions 6. Follow-Up: 1. See primary care provider within 7 days of discharge to make sure medical issues are okay 2. Dr. Gandara as scheduled. 7. Medications at the Time of Discharge: Home Medications Medication Instructions Recorded Confirmed Type Finasteride 1 tab PO QD tab 09/17/16 10/14/16 History Levothyroxine Sodium 1 tab PO DAILY tab 09/17/16 10/14/16 History Lisinopril/Hydrochlorothiazide 0.5 tab PO DAILY tab 09/17/16 10/14/16 History [Lisinopril-Hctz 10-12.5 mg Tab] Naproxen Sodium [Aleve] 2 cap PO BID cap 09/17/16 10/14/16 History Docusate Sodium [Colace] 100 mg PO BID #60 cap 10/17/16 Rx HYDROcodone/APAP 7.5/325 Tab 1 - 2 tab PO Q4H PRN #40 tab 10/17/16 Rx [Fults 7.5/325 Tab] 8. Time, care, counseling and coordination of care for this discharge is less than 30 minutes. Exam - Vitals Vital Signs: Vital Signs Temperature 98.2 F Temperature Source Oral Pulse Rate [Apical] 78 Pulse Rate [Pulse Oximeter] 77 Pulse Rate 69 Respiratory Rate 20 Blood Pressure [Right Arm] 117/58 Blood Pressure 143/79 Pulse Ox 97 Oxygen Flow Rate 91 Oxygen Flow Rate 5 Oxygen Delivery Method Room Air Height 5 ft 11 in Weight 158 lb 11.2 oz - General General Appearance: POSITIVE: No Acute Distress, Cooperative - Eye Eye Exam: POSITIVE: No Scleral Icterus - Respiratory Respiratory Exam: POSITIVE: Clear to Auscultation - Bilaterally, Breathing Non Labored - Cardiovascular Cardiovascular Exam: POSITIVE: RRR, No Murmur, No Clicks, No Gallops, No Rubs, No JVD - GI/Abdominal GI/Abdominal Exam: POSITIVE: Normal Bowel Sounds, Non Tender, Non Distended, Soft - Extremities Extremities Exam: POSITIVE: No Clubbing Present, No Edema Present, No Cyanosis Present Additional Extremities Exam Details: Anterior hip is dressed, dressing is clean, dry, intact. - Neurological Neurological Exam: POSITIVE: Alert, Oriented x 3, No Facial Droop, Speech Intact / Clear Data Perinent Studies: Laboratory Results 10/14/16 10/15/16 10/16/16 Range/Units 06:50 06:39 06:01 WBC 6.14 8.65 12.47 H (4.8-10.8) 10^3/uL RBC 4.25 L 3.07 L 3.29 L (4.70-6.10) 10^6/uL Hgb 13.0 L 9.5 L 10.4 L (14.0-18.0) g/dL Hct 38.7 L 29.0 L 30.8 L (42.0-52.0) % MCV 91.1 H 94.5 H 93.6 H (80-90) FL MCH 30.6 30.9 31.6 H (27-31) PG MCHC 33.6 32.8 L 33.8 (33-37) g/dL RDW Std Deviation 39.8 41.1 40.7 (39-50) fL RDW Coeff of Coreen 12.2 12.4 12.4 (11.5-14.5) % Plt Count 270 203 209 (140-350) 10*3/uL MPV 8.7 9.1 9.1 (7.4-12.2) FL PT 11.3 11.8 H (9.7-11.4) secs INR 1.07 1.11 (0.00-5.90) N/A Sodium 136 135 135 (135-145) meq/L Potassium 4.7 4.6 4.8 (3.8-5.2) meq/L Chloride 106 105 104 (98-112) meq/L Carbon Dioxide 22 L 25 22 L (23-33) meq/L Anion Gap 8 5 9 (5-20) BUN 29 H 26 H 30 H (7-22) mg/dL Creatinine 1.8 H 1.8 H 1.8 H (0.70-1.50) mg/dL Estimated GFR Data Collector Data Collector Data Collector BUN/Creatinine Ratio 16.11 14.44 16.66 (6-20) Glucose 94 103 93 (78-110) mg/dL Calculated Osmolality 287.0 284.0 285.0 (267-292) mOsm/kg Calcium 9.2 8.6 L 8.9 (8.7-10.7) mg/dL Total Bilirubin 0.7 (0.3-1.2) mg/dL AST 32 (21-57) IU/L ALT 23 (21-72) IU/L Alkaline Phosphatase 78 (38-126) IU/L Total Protein 6.9 (6.1-8.0) g/dL Albumin 4.0 (3.5-4.8) g/dL Globulin 3.0 (2.50-4.10) g/dL Albumin/Globulin Ratio 1.30 (1.3-2.0) mg/g 10/17/16 10/17/16 Range/Units 05:00 07:55 WBC 10.39 (4.8-10.8) 10^3/uL RBC 3.32 L (4.70-6.10) 10^6/uL Hgb 10.3 L (14.0-18.0) g/dL Hct 31.2 L (42.0-52.0) % MCV 94.0 H (80-90) FL MCH 31.0 (27-31) PG MCHC 33.0 (33-37) g/dL RDW Std Deviation 41.2 (39-50) fL RDW Coeff of Coreen 12.6 (11.5-14.5) % Plt Count 227 (140-350) 10*3/uL MPV 8.3 (7.4-12.2) FL PT 10.7 (9.7-11.4) secs INR 1.01 (0.00-5.90) N/A Sodium 135 (135-145) meq/L Potassium 4.1 (3.8-5.2) meq/L Chloride 103 (98-112) meq/L Carbon Dioxide 25 (23-33) meq/L Anion Gap 7 (5-20) BUN 34 H (7-22) mg/dL Creatinine 1.8 H (0.70-1.50) mg/dL Estimated GFR Data Collector BUN/Creatinine Ratio 18.88 (6-20) Glucose 179 H (78-110) mg/dL Calculated Osmolality 291.0 (267-292) mOsm/kg Calcium 8.9 (8.7-10.7) mg/dL Total Bilirubin (0.3-1.2) mg/dL AST (21-57) IU/L ALT (21-72) IU/L Alkaline Phosphatase (38-126) IU/L Total Protein (6.1-8.0) g/dL Albumin (3.5-4.8) g/dL Globulin (2.50-4.10) g/dL Albumin/Globulin Ratio (1.3-2.0) mg/g Patient Problems - Patient Problem List (1) Status post right hip replacement Current Visit: Yes Status: Acute (2) HTN (hypertension) Current Visit: Yes Status: Acute Qualifiers: Hypertension type: essential hypertension Qualified Description: Essential hypertension Qualifier Code(s): (I10) Essential (primary) hypertension (3) BPH (benign prostatic hyperplasia) Current Visit: Yes Status: Acute Qualifiers: Prostatic enlargement morphology: unspecified morphology Lower urinary tract symptom presence: presence of symptoms unspecified Qualified Description: Benign prostatic hyperplasia, presence of lower urinary tract symptoms unspecified, unspecified morphology Qualifier Code(s): (N40.0) Benign prostatic hyperplasia without lower urinary tract symptoms (4) Depression Current Visit: Yes Status: Acute Qualifiers: Depression Type: unspecified Qualified Description: Depression, unspecified depression type Qualifier Code(s): (F32.9) Major depressive disorder, single episode, unspecified (5) Hip arthritis Current Visit: Yes Status: Acute
[2016-10-17 13:07] VITALS: TEMP 98
== END 2016-10-17 13:45 | disposition home or self-care (01) | DRG 470 ==
LOC: OPS 05:54 → MED/SURG 10:38
PROVIDERS: ADMIT Orthopaedic Surgery; ATTEND Orthopaedic Surgery
PROC: 0SR9049 Replacement of Right Hip Joint with Ceramic on Polyethylene Synthetic Substitute, Cemented, Open Approach (ICD-10-PCS; principal; 2016-10-14 08:00)
DX: M16.11 Unilateral primary osteoarthritis, right hip (principal); I10 Essential (primary) hypertension; N40.0 Benign prostatic hyperplasia without lower urinary tract symptoms; F32.9 Major depressive disorder, single episode, unspecified
CPT/HCPCS: 36415; 73502; 76001; 80048; 80053; 85027; 85610; 94150; 94761; 97010; 97110; 97116; 97161; 97166; 97530; 97535; A4216; J0690; J1170; J1580; J1644; J1885; J2001; J2250; J2270; J2405; J3010; J7030; J7040; J7050; J7120; S0020

== ENCOUNTER → 2016-10-30 | Outpatient (CLI) | payer OTHER ==
--- NOTE | 2016-10-30 14:51 | DI ---
XR HIP B/L MIN 2VW, EACH HIP,10/30/2016 1:02 PM: Clinical History: Prior right total hip arthroplasty. Previous Exam: None at this facility. Findings: AP and cross table lateral views of both hips are obtained, and demonstrate postsurgical changes cons istent with right total hip arthroplasty. Left hip is anatomic without fractures. Diffuse degenerative changes of lumbar spine are noted. A nonobstructive bowel gas pattern is seen. A few phleboliths are seen in the deep pelvis. Impression: Status post right total hip arthroplasty otherwise unremarkable.
== END ==
LOC: ORTHO 13:20
PROVIDERS: ATTEND Orthopaedic Surgery
DX: Z47.1 Aftercare following joint replacement surgery (principal); Z96.641 Presence of right artificial hip joint; Z98.890 Other specified postprocedural states
CPT/HCPCS: 73521